=== PATIENT | female | born 1950 | race Caucasian/White ===

== ENCOUNTER 2021-07-20 23:54 | Inpatient (IN) | payer OTHER ==
[~2021-07-20] VITALS: Ht 170.2 cm; Wt 89.0 kg
[2021-07-21] MEDS ORDERED: OZEMPIC0.25 MG/0. SQ (11:04)
[2021-07-21] MEDS ORDERED: VALSARTAN160 MG PO (11:04)
[2021-07-21] MEDS ORDERED: POTASSIUM CHLO20 ME2 PO (11:05)
[2021-07-21] MEDS ORDERED: GLUCOPHAGE XR500 M1 PO ×2 (11:05→11:06)
[2021-07-21] MEDS ORDERED: OMEPRAZOLE20 MG PO (11:06)
[2021-07-21] MEDS ORDERED: GABAPENTIN100 MG PO (11:07)
[2021-07-21] MEDS ORDERED: NORVASC5 MG PO (11:08)
[2021-07-21] MEDS ORDERED: SUPER B WITH V1 EACH PO (11:10)
[2021-07-21] MEDS ORDERED: MAGNESIUM500 MG PO (11:10)
[2021-07-21] MEDS ORDERED: B12 ACTIVE1000 MCG PO (11:11)
[2021-07-21] MEDS ORDERED: VITAMIN C500 M2 PO (11:12)
[2021-07-21] MEDS ORDERED: ZINC50 M2 PO (11:12)
[2021-07-22 04:29] LABS: BUN/CREATININE RATIO 14 (0-10)
[2021-07-23 04:07] LABS: BUN/CREATININE RATIO 16 (0-10)
[2021-07-23] MEDS ORDERED: CARDIZEM CD180 MG PO (14:47)
[2021-07-23] MEDS ORDERED: ELIQUIS 5 MG TAB5 MG PO (14:47)
[2021-07-23] MEDS ORDERED: LOPRESSOR 50 MG50 MG PO (14:47)
--- NOTE | 2021-07-23 16:05 | NUR ---
PT QUESTIONED SOME HOME MEDS THAT WHERE NOT ADDRESSED ON DISCHARGE MED LIST. LOOKED OVER HOME MED REC AND NOTED GRAHAM IN PHARMACY HAD TAKEN SOME HOME MEDS OFF LIST AFTER THIS NURSE HAD MED REC DONE WITH PT. CALLED AND SPOKE TO PHARMACIST GRAHAM AND UNAWARE OF WHY MEDS WHERE TAKEN OFF HOME MED REC PT DOES TAKE VALSARTAN 160 MG AT HOME WELL OZEMPIC. MD NOTIFIED OF MEDS PT TAKES AT HOME AND OF SITUATION. STATES TO TELL PT NOT TO TAKE VALSARTAN AND OK TO CONTINUE OZEMPIC A/O. CORRECTED ON DISCHARGE MED REC AND EXPLAINED TO PT.
== END 2021-07-23 16:55 | disposition home or self-care (01) | DRG 308 ==
LOC: PROG CARE 23:54
PROVIDERS: Internal Medicine Infectious Disease; ADMIT Internal Medicine
PROC: B24BZZZ Ultrasonography of Heart with Aorta (ICD-10-PCS; principal; 2021-07-21)
PROC: 5A2204Z Restoration of Cardiac Rhythm, Single (ICD-10-PCS; 2021-07-22)
PROC: B24BZZ4 Ultrasonography of Heart with Aorta, Transesophageal (ICD-10-PCS; 2021-07-22)
DX: I48.0 Paroxysmal atrial fibrillation (principal); I50.21 Acute systolic (congestive) heart failure; I11.0 Hypertensive heart disease with heart failure; Z20.822 Contact with and (suspected) exposure to COVID-19; E11.9 Type 2 diabetes mellitus without complications; K21.9 Gastro-esophageal reflux disease without esophagitis; I34.0 Nonrheumatic mitral (valve) insufficiency; R53.83 Other fatigue; Z90.12 Acquired absence of left breast and nipple; Z85.3 Personal history of malignant neoplasm of breast; Z92.3 Personal history of irradiation; Z90.49 Acquired absence of other specified parts of digestive tract; Z98.890 Other specified postprocedural states; Z82.49 Family history of ischemic heart disease and other diseases of the circulatory system; Z80.41 Family history of malignant neoplasm of ovary; Z88.5 Allergy status to narcotic agent; Z79.899 Other long term (current) drug therapy; Z79.01 Long term (current) use of anticoagulants
CPT/HCPCS: ECHO; 36415; 71045; 80048; 80053; 82962; 83036; 83735; 93005; 93306; 93312; 93320; 94760; J1200; J1940; J2250; J3010